=== PATIENT | female | born 1965 | race Caucasian/White ===

== ENCOUNTER 2020-03-21 08:54 | Emergency (ER) | payer BC, MEDICAID, SELFPAY ==
[~2020-03-21] VITALS: Ht 172.7 cm; Wt 64.5 kg
[~2020-03-21 08:54] MED LIST: CHOL100046 PO; GLUC15006 PO
[2020-03-21 10:21] VITALS: BP 150/82
== END 2020-03-21 10:20 | disposition home or self-care (01) ==
LOC: ER 08:55
DX: S27.818A Other injury of esophagus (thoracic part), initial encounter (principal); R11.10 Vomiting, unspecified; R05 Cough; R53.1 Weakness; Z79.899 Other long term (current) drug therapy; X58.XXXA Exposure to other specified factors, initial encounter; Y93.89 Activity, other specified; Y92.89 Other specified places as the place of occurrence of the external cause; Y99.8 Other external cause status
CPT/HCPCS: 29125; 29130; 99281